=== PATIENT | female | born 1930 | race Caucasian/White ===

== ENCOUNTER → 2017-05-12 | Outpatient (CLI) | payer MEDICARE ==
[2017-05-12 11:30] LABS: ALANINE AMINOTRANSFERASE 21 U/L (9-52); ALBUMIN 3.9 g/dL (3.5-5.0); ALKALINE PHOSPHATASE 71 U/L (38-126); ANION GAP 10 (5-19); ASPARTATE AMINO TRANSFERASE 13 U/L (14-36); BILIRUBIN,DIRECT 0.3 mg/dL (0.0-0.4); BILIRUBIN,TOTAL 0.6 mg/dL (0.2-1.3); BLOOD UREA NITROGEN 14 mg/dL (7-20); CALCIUM 9.7 mg/dL (8.4-10.2); CARBON DIOXIDE 30 mmol/L (22-30); CHLORIDE 102 mmol/L (98-107); CHOLESTEROL 181.55 mg/dL (0-200); CREATININE RESULT 0.58 mg/dL (0.52-1.25); Direct HDL 60 mg/dL (>40); GLUCOSE 103 mg/dL (75-110); POTASSIUM 4.3 mmol/L (3.6-5.0); SODIUM 142.1 mmol/L (137-145); TOTAL PROTEIN 6.9 g/dL (6.3-8.2); TRIGLYCERIDES 113 mg/dL (<150)
[2017-05-12 11:41] LABS: DIRECT LDL 88 mg/dL (<100)
== END ==
LOC: OD 09:19
PROVIDERS: ATTEND Family Medicine
DX: E78.5 Hyperlipidemia, unspecified (principal); I10 Essential (primary) hypertension; E11.9 Type 2 diabetes mellitus without complications
CPT/HCPCS: 36415; 80053; 80061; 83036

== ENCOUNTER → 2018-12-10 | Outpatient (CLI) | payer MEDICARE ==
[2018-12-10 12:06] LABS: ALANINE AMINOTRANSFERASE 13 U/L (9-52); ALBUMIN 3.6 g/dL (3.5-5.0); ALKALINE PHOSPHATASE 61 U/L (38-126); ANION GAP 7 (5-19); ASPARTATE AMINO TRANSFERASE 12 U/L (14-36); BILIRUBIN,DIRECT 0.2 mg/dL (0.0-0.4); BILIRUBIN,TOTAL 0.3 mg/dL (0.2-1.3); BLOOD UREA NITROGEN 16 mg/dL (7-20); CALCIUM 9.3 mg/dL (8.4-10.2); CARBON DIOXIDE 31 mmol/L (22-30); CHLORIDE 102 mmol/L (98-107); CHOLESTEROL 143.62 mg/dL (0-200); GLUCOSE 97 mg/dL (75-110); POTASSIUM 3.7 mmol/L (3.6-5.0); SODIUM 139.5 mmol/L (137-145); TOTAL PROTEIN 6.3 g/dL (6.3-8.2); TRIGLYCERIDES 126 mg/dL (<150)
[2018-12-10 12:17] LABS: DIRECT LDL 66 mg/dL (<100)
== END ==
LOC: OD 08:52
PROVIDERS: ATTEND Family Medicine
DX: I10 Essential (primary) hypertension (principal); E78.5 Hyperlipidemia, unspecified
CPT/HCPCS: 36415; 80053; 80061

== ENCOUNTER → 2019-12-07 | Outpatient (CLI) | payer MEDICARE | LOC: OD 14:50 | PROVIDERS: ATTEND Family Medicine | DX: R41.82 Altered mental status, unspecified (principal) ==

== ENCOUNTER 2019-12-11 06:28 | Emergency (ER) | payer MEDICARE ==
--- NOTE | 2019-12-11 08:18 | RADIOLOGY REPORT (SQ) ---
EXAM DESCRIPTION: HIP LEFT AP/LATERAL COMPLETED DATE/TIME: 12/11/2019 7:04 am REASON FOR STUDY: fall; ? deformity COMPARISON: Pelvis and right hip films 03/05/2015, 08/15/2014, 06/21/2014 NUMBER OF VIEWS: Two views. TECHNIQUE: AP pelvis and additional frog-leg view of the left hip. LIMITATIONS: None. FINDINGS: MINERALIZATION: Osteopenic LEFT HIP: No fracture or dislocation. No worrisome bone lesions. RIGHT HIP: Post replacement PUBIS AND ISCHIUM: No fracture. PELVIS: No fracture. SACRUM: No fracture or dislocation. No worrisome bone lesions. SOFT TISSUES: No findings. OTHER: No other significant finding. IMPRESSION: No acute fracture or malalignment left hip. Bony pelvis grossly intact TECHNICAL DOCUMENTATION: JOB ID: [id number] [employer]- All Rights Reserved Reading location - IP/workstation name: [email or web address]
--- NOTE | 2019-12-11 10:21 | RADIOLOGY REPORT (SQ) ---
EXAM DESCRIPTION: KNEE LEFT 3 VIEWS COMPLETED DATE/TIME: 12/11/2019 10:11 am REASON FOR STUDY: injury COMPARISON: None. NUMBER OF VIEWS: Three views TECHNIQUE: AP, lateral, and sunrise patella radiographic images acquired of the left knee. LIMITATIONS: None. FINDINGS: MINERALIZATION: Osteopenic BONES: No acute fracture. Left total knee replacement with patellar resurfacing. JOINT: Small suprapatellar knee joint effusion with ossified loose bodies. SOFT TISSUES: Popliteal artery calcification, arterial vascular bypass clips. OTHER: No other significant finding. IMPRESSION: No acute fracture. Suprapatellar knee joint effusion. TECHNICAL DOCUMENTATION: JOB ID: [id number] [employer]- All Rights Reserved Reading location - IP/workstation name: [email or web address]
--- NOTE | 2019-12-11 11:38 | ER Document Report ---
ED Fall - General Chief Complaint: Fall Injury Stated Complaint: FALL/HIP INJURY Time Seen by Provider: 12/11/19 06:57 Primary Care Provider: ATILIO KO MD [Primary Care Provider] - Follow up as needed Mode of Arrival: Medic Information source: Patient Notes: 89-year-old woman presents emergency department history of a fall at home this morning. Apparently her daughter was attempting to transfer her when she slid to the floor injuring her left lower extremity. EMS was called the patient was was helped off the floor and brought to the emergency department for evaluation of the left lower extremity injury. Patient has a history of dementia and is a poor historian. TRAVEL OUTSIDE OF THE [place] IN LAST 30 DAYS: No - Related data Allergies/Adverse Reactions: Penicillins Allergy (Verified 09/28/14 12:21) Unknown reaction Past Medical History - Social History Smoking Status: Unknown if Ever Smoked Family History: Reviewed & Not Pertinent Patient has suicidal ideation: No Patient has homicidal ideation: No - Past Medical History Cardiac Medical History: Reports: Hx Coronary Artery Disease - Hx 4 vessel CABG 2004, Hx Hypercholesterolemia - meds approx 25 years, Hx Hypertension - meds approx 25 years Denies: Hx Atrial Fibrillation, Hx Congestive Heart Failure, Hx Heart Attack, Hx Peripheral Vascular Disease, Hx Heart Murmur Neurological Medical History: Denies: Hx Cerebrovascular Accident, Hx Seizures, Hx Parkinson's Disease Endocrine Medical History: Reports: Hx Diabetes Mellitus Type 2. Denies: Hx Graves' Disease, Hx Hyperthyroidism, Hx Hypothyroidism Renal/ Medical History: Denies: Hx End Stage Renal Disease, Hx Kidney Stones, Hx Ovarian Cysts, Hx Peritoneal Dialysis, Hx Pelvic Inflammatory Disease Malignancy Medical History: Denies: Hx Breast Cancer, Hx Cervical Cancer, Hx Ovarian Cancer Musculoskeletal Medical History: Reports Hx Arthritis, Denies Hx Fibromyalgia, Denies Hx Multiple Sclerosis, Denies Hx Muscular Dystrophy, Denies Hx Systemic Lupus Erythematosus Psychiatric Medical History: Reports: Hx Dementia - no Rx'ed as of yet, Hx Depression - meds x 1 year Denies: Hx Bipolar Disorder, Hx Post Traumatic Stress Disorder, Hx Schizophrenia Traumatic Medical History: Reports: Hx Fractures - RT hip Jun 2014, hemiarthroplasty Past Surgical History: Reports: Hx Cardiac Surgery, Hx Cholecystectomy - , Hx Coronary Artery Bypass Graft - 4 vessel 2004, Hx Open Heart Surgery, Hx Orthopedic Surgery - right hip replaced 06-21-14, Hx Pacemaker - 2007. Denies: Hx Appendectomy, Hx Bowel Surgery, Hx Section, Hx Gastric Bypass Surgery, Hx Herniorrhaphy, Hx Hysterectomy, Hx Mastectomy, Hx Tonsillectomy, Hx Tubal Ligation - Immunizations Hx Pneumococcal Vaccination: 07/17/14 Review of Systems - Review of Systems -: Yes ROS unobtainable due to patient's medical condition - Patient has dementia and is an unreliable historian. Physical Exam - Vital signs Vitals: Temp Pulse Resp BP Pulse Ox 97.4 F 76 18 117/50 L 94 12/11/19 06:12/11/19 06:12/11/19 06:12/11/19 06:12/11/19 06:33 - Notes Notes: PHYSICAL EXAMINATION: Physical Exam: General: Frail elderly female in no acute distress HEENT: NC/AT, pupils equal round and reactive to light, MM moist,nares clear, oropharynx clear Neck: supple, no adenopathy, no masses. Lungs: clear, no wheezing, no rales no rhonchi CVS: Regular rate and rhythm no murmur gallop or rub Abdomen: Soft active nontender, no masses, no hepatosplenomegaly Ext: Left lower extremity with tenderness in the left knee with decreased range of motion secondary to pain, mild swelling no obvious deformity otherwise. No other injury noted. Neuro: Alert and responsive, moving all 4 extremities on command, cranial nerves intact. Skin: Intact no open lesions, no rash Course - Vital Signs Vital signs: Temp Pulse Resp BP Pulse Ox 97.4 F 76 18 117/50 L 94 12/11/19 06:12/11/19 06:12/11/19 06:12/11/19 06:12/11/19 06:33 - Diagnostic Test Radiology reviewed: Image reviewed, Reports reviewed - X-ray left hip: No fracture seen X-ray left knee: Effusion, no fracture seen Discharge - Discharge Clinical Impression: Contusion of left knee Qualifiers: Encounter type: initial encounter Qualified Code(s): S80.02XA - Contusion of l eft knee, initial encounter Fall Qualifiers: Encounter type: initial encounter Qualified Code(s): W19.XXXA - Unspecified fa ll, initial encounter Disposition: HOME, SELF-CARE Instructions: Contusion ([facility]) Additional Instructions: You may use Tylenol for pain, apply a cold pack to the area of swelling left knee. If the symptoms are not resolving over the next 2 to 3 days, please follow-up with your primary care doctor as needed. Referrals: ATILIO KO MD [Primary Care Provider] - Follow up as needed
[2019-12-11 12:43] VITALS: BP 115/49
== END 2019-12-11 12:55 | disposition home or self-care (01) ==
LOC: ER 06:28
DX: S80.02XA Contusion of left knee, initial encounter (principal); M25.462 Effusion, left knee; W17.89XA Other fall from one level to another, initial encounter; Y93.89 Activity, other specified; Y92.009 Unspecified place in unspecified non-institutional (private) residence as the place of occurrence of the external cause; I25.10 Atherosclerotic heart disease of native coronary artery without angina pectoris; I10 Essential (primary) hypertension; F03.90 Unspecified dementia, unspecified severity, without behavioral disturbance, psychotic disturbance, mood disturbance, and anxiety; E11.9 Type 2 diabetes mellitus without complications; Z88.0 Allergy status to penicillin
CPT/HCPCS: 99283